=== PATIENT | female | born 1970 | race Caucasian/White ===

== ENCOUNTER → 2017-10-20 10:50 | Outpatient (CLI) | payer OTHER, SELFPAY ==
[2017-10-20 12:12] LABS: T4 Free Direct 1.35 ng/dL (0.76-1.46); Thyroid Stim Hormone (TSH) 0.16 uIU/mL (0.358-3.74)
[2017-10-22 10:03] LABS: Anti-Thyroglobulin AB < 1.0 IU/mL (0.0-0.9); Thyroglobulin, Serum Qt. 0.1 ng/mL (1.5-38.5)
== END ==
PROVIDERS: Family Provider Family Medicine; PCP Family Medicine; Visit Provider Internal Medicine
DX: C73 Malignant neoplasm of thyroid gland (principal)
CPT/HCPCS: 36415; 84432; 84439; 84443; 86800

== ENCOUNTER → 2018-05-09 11:56 | Outpatient (CLI) | payer OTHER, SELFPAY ==
--- NOTE | 2018-05-09 11:58 | BI_ITS ---
MAMMOGRAPHY - BILATERAL SCREENING 3-D AMADA SYNTHESIS REASON FOR EXAM: Female, 47 years old. Bilateral Screening 3-D tomosynthesis PERTINENT HISTORY: Asymptomatic. Family breast carcinoma, paternal aunt age 45. TECHNIQUE: 2-D mammograms and 3-D Amada synthesis of the breast (s) were performed. CAD was performed. COMPARISON: 04/02/2017, 03/30/2016. FINDINGS: The breast composition is heterogeneously dense that can obscure small breast masses. Scattered benign appearing calcifications are again seen. No dense spiculated dominant masses or suspicious microcalcification cluster are identified. No architectural distortion, asymmetric density, adenopathy, skin thickening or nipple retraction identified. There has been no significant change since the most recent prior study. BI/SCREENING MAMM (CAD), BILAT IMPRESSION: No mammographic sign of malignancy. Routine yearly mammograms recommended. ASSESSMENT CATEGORY: BIRADS Category 2: Benign. A letter regarding these results will be sent to the patient by the facility within 30 days. FOLLOW UP RECOMMENDATION: Yearly follow up mammogram recommended. (A) Negative mammographic results should not deter biopsy as a palpable lesion if present should be followed on clinical grounds and biopsy performed if clinically persistent for 3 months or increasing size. Approximately 10% of breast cancers are not detected by mammography. A normal mammogram should not delay biopsy of a clinically suspicious abnormality. Dense breast tissue mainstream neoplasm. Electronically Signed: Silas Correa, at 14:55 EDT Tel , Service support ,
== END ==
PROVIDERS: Family Provider Family Medicine; PCP Family Medicine; Visit Provider Nurse Practitioner Women's Health
DX: Z12.31 Encounter for screening mammogram for malignant neoplasm of breast (principal)
CPT/HCPCS: 77063; 77067

== ENCOUNTER → 2018-11-18 07:48 | Outpatient (CLI) | payer OTHER, SELFPAY ==
[2018-10-24 06:27] VITALS: BMI 33.9
[2018-11-18 08:50] LABS: T4 Free Direct 1.26 ng/dL (0.76-1.46); Thyroid Stim Hormone (TSH) 1.69 uIU/mL (0.358-3.74)
[2018-11-22 17:59] LABS: Thyroglobulin Antibody < 1.0 IU/mL (0.0-0.9)
== END ==
PROVIDERS: Family Provider Family Medicine; PCP Family Medicine; Referring Provider Internal Medicine; Visit Provider Internal Medicine
DX: C73 Malignant neoplasm of thyroid gland (principal); E03.9 Hypothyroidism, unspecified
CPT/HCPCS: 36415; 84439; 84443; 86800

== ENCOUNTER → 2019-05-10 08:18 | Outpatient (CLI) | payer OTHER, SELFPAY ==
[2019-02-20 10:52] VITALS: BMI 34.0
--- NOTE | 2019-05-10 08:21 | BI_ITS ---
BILATERAL DIGITAL MAMMOGRAM WITH TOMOSYNTHESIS: Mediolateraloblique and craniocaudal views demonstrate no evidence of dominant parenchymal masses. No cluster of microcalcifications or architectural distortion is seen. No evidence of skin thickening is identified There has been no significant change since 05/09/2018. Breast Density: The breast tissue is heterogeneously dense, which may obscure small masses. CAD was used to assist in final assessment. IMPRESSION: NORMAL MAMMOGRAM BILATERALLY. ASSESSMENT CATEGORY: BIRADS Category 1: Negative. A letter regarding these results will be sent to the patient by the facility within 30 days. FOLLOW UP RECOMMENDATION: Yearly follow up mammogram recommended. (A) Approximately 10% of breast cancers are not detected by mammography. A normal mammogram should not delay biopsy of a clinically suspicious abnormality. Electronically Signed: Andrea Ramirez, at 17:40 EDT Tel , Service support , BI/SCREEN MAMM (CAD) W/AMADA THAPA
== END ==
PROVIDERS: Family Provider Family Medicine; PCP Family Medicine; Referring Provider Obstetrics & Gynecology; Visit Provider Obstetrics & Gynecology
DX: Z12.31 Encounter for screening mammogram for malignant neoplasm of breast (principal)
CPT/HCPCS: 77063; 77067

== ENCOUNTER → 2019-06-26 10:34 | Outpatient (CLI) | payer OTHER, SELFPAY ==
[2019-06-26 10:25] VITALS: BMI 34.0
--- NOTE | 2019-06-26 10:37 | RAD_ITS ---
STUDY: X-RAY CHEST REASON FOR EXAM: Female, 48 years old. TECHNIQUE: 2 views COMPARISON: None. FINDINGS: The lungs are clear and expanded. There is no demonstrated pleural abnormality. Normal size heart. Normal mediastinum and lizbet. Normal visualized pulmonary arteries. Normal visualized aortic arch and descending thoracic aorta. Normal visualized thoracic spine. Normal visualized ribs, clavicles, and shoulders. There is no demonstrated abnormality of the visualized soft tissue structures of the upper abdomen. RAD/Chest PA and Lateral IMPRESSION: Normal x-ray examination of the chest. Electronically Signed: Kaylie Travis, at 10:58 EST Tel , Service support ,
== END ==
PROVIDERS: Family Provider Family Medicine; PCP Family Medicine; Referring Provider Physician Assistant; Visit Provider Physician Assistant
DX: R05 Cough (principal)
CPT/HCPCS: 71046

== ENCOUNTER → 2019-07-24 17:16 | Outpatient (CLI) | payer OTHER, SELFPAY ==
[2019-07-24 11:19] VITALS: BMI 34.0
[2019-07-31 12:53] LABS: HPV APTIMA, High Risk Negative (Negative)
== END ==
PROVIDERS: Family Provider Family Medicine; PCP Family Medicine; Referring Provider Obstetrics & Gynecology; Visit Provider Obstetrics & Gynecology
DX: Z12.4 Encounter for screening for malignant neoplasm of cervix (principal)
CPT/HCPCS: 87624; 88175; G0145

== ENCOUNTER → 2020-01-08 07:38 | Outpatient (CLI) | payer OTHER, SELFPAY ==
[2019-07-24 11:19] VITALS: BMI 34.0
[2020-01-08 08:57] LABS: T4 Free Direct 1.55 ng/dL (0.76-1.46); Thyroid Stim Hormone (TSH) < 0.01 uIU/mL (0.358-3.74)
[2020-01-10 05:33] LABS: Thyroglobulin Antibody < 1.0 IU/mL (0.0-0.9)
== END ==
PROVIDERS: PCP Family Medicine; Referring Provider Internal Medicine; Visit Provider Internal Medicine
DX: C73 Malignant neoplasm of thyroid gland (principal); E03.9 Hypothyroidism, unspecified
CPT/HCPCS: 36415; 84439; 84443; 86800

== ENCOUNTER → 2020-05-18 07:53 | Outpatient (CLI) | payer OTHER, SELFPAY ==
[2019-07-24 11:19] VITALS: BMI 34.0
--- NOTE | 2020-05-18 07:54 | BI_ITS ---
MAMMOGRAPHY - BILATERAL SCREENING REASON FOR EXAM: Female, 49 years old. Routine annual screening examination. PERTINENT HISTORY: Aunt with breast cancer. TECHNIQUE: Digital bilateral breast amada (3D mammographic acquisition) in the CC and MLO projections. 2-D mediolateral oblique (MLO) and craniocaudad (CC) views of both breasts were obtained. CAD: Full Field Digital Mammography with Computer Added Detection was performed. COMPARISON: Comparison is made with prior study dated 05/10/2019 05/09/2018. FINDINGS: Breast Composition: The breasts are heterogeneously dense, which may obscure small masses. There are no dominant masses or suspicious calcifications. Stable benign-appearing bilateral axillary lymph nodes. No other significant abnormalities are identified. There has been no significant change since the prior study. BI/SCREEN MAMM (CAD) W/AMADA BILAT IMPRESSION: Stable bilateral screening mammogram. Yearly follow-up mammogram recommended. (A) ASSESSMENT CATEGORY: BIRADS Category 2: Benign. A letter regarding these results will be sent to the patient by the facility within 30 days. Approximately 10% of breast cancers are not detected by mammography. A normal mammogram should not delay biopsy of a clinically suspicious abnormality. [id number] Electronically Signed: Patricio Shepherd, at 8:49 EDT , Service support ,
== END ==
LOC: OPBI 11-20 00:27
PROVIDERS: Family Provider Family Medicine; PCP Family Medicine; Referring Provider Obstetrics & Gynecology; Visit Provider Obstetrics & Gynecology
DX: Z12.31 Encounter for screening mammogram for malignant neoplasm of breast (principal); Z80.3 Family history of malignant neoplasm of breast
CPT/HCPCS: 77063; 77067

== ENCOUNTER → 2021-03-04 13:51 | Outpatient (CLI) | payer OTHER, SELFPAY ==
[2021-03-04 13:21] VITALS: BMI 32.3
[2021-03-04 15:05] LABS: Absolute Lymphocyte Count 2.23 X10^3/uL (0.83-4.51); Absolute Neutrophil Count 3.6 X10^3/uL (2.0-7.7); Basophil# 0.08 X10^3/uL; Basophil% 1.2 % (0-1); Eosinophil# 0.11 X10^3/uL; Eosinophils% 1.7 % (0-5); Hematocrit 41.5 % (37-47); Hemoglobin 13.9 g/dL (12.0-15.0); Lymphocyte # 2.23 X10^3/ul (0.83-4.51); Mean Corp Hgb Conc 33.5 g/dL (32-36); Mean Corpuscular Hgb 29.3 pg (27.0-32.0); Mean Corpuscular Volume 87.6 fL (81-99); Mean Platelet Vol. 8.7 fl (6.2-12.0); Monocyte# 0.57 X10^3/uL; Monocyte% 8.7 % (0-10); NRBC Flagged by Analyzer 0 % (0-5); Neutrophil # 3.56 X10^3/uL (2.7-7.7); Neutrophil % 54.2 % (47-70); Platelet Count 387 K/mm3 (150-450); RBC Distribution Width CV 11.9 % (11.6-14.6); RBC Distribution Width SD 38.5 fl (35.1-43.9); Red Blood Count 4.74 M/mm3 (4.2-5.4); White Blood Count 6.6 K/mm3 (4.4-11.0)
[2021-03-04 15:16] LABS: ALB/GLOB Ratio 1.2 RATIO (0.9-2.4); AST(SGOT) 19 U/L (15-37); Alanine Aminotransfer ALT/SGPT 30 U/L (13-56); Albumin, Serum 4.4 g/dL (3.2-5.0); Alkaline Phosphatase 92 U/L (45-117); Anion Gap 4 (5-15); BUN 19 mg/dL (7-18); BUN/Creat Ratio 22.9 RATIO (10-20); Calcium,Total 8.9 mg/dL (8.5-10.1); Chloride 104 mmol/L (98-107); Cholesterol 243 mg/dL (200); Creatinine, Serum 0.83 mg/dL (0.55-1.02); EST Glomerular Filtration Rate 77 mL/min (>60); Est Glom Filt Rate - Afr Amer 94 mL/min (>60); Globulin 3.6 g/dL (2.2-4.2); Glucose 78 mg/dL (74-106); High Density Lipoprotein 70 mg/dL; Potassium 3.7 mmol/L (3.5-5.1); Sodium Level 137 mmol/L (136-145); Triglycerides 67 mg/dL; Very Low Density Lipoprotein 13 mg/dL (5-40)
== END ==
PROVIDERS: PCP Internal Medicine; Referring Provider Internal Medicine; Visit Provider Internal Medicine
DX: Z00.00 Encounter for general adult medical examination without abnormal findings (principal)
CPT/HCPCS: 36415; 80053; 80061; 85025

== ENCOUNTER 2021-09-08 08:18 | Outpatient (CLI) | payer OTHER, SELFPAY ==
--- NOTE | 2021-09-08 08:19 | BI_ITS ---
MAMMOGRAPHY - BILATERAL SCREENING REASON FOR EXAM: Female, 50 years old. Routine annual screening examination. PERTINENT HISTORY: Aunt with breast cancer. TECHNIQUE: Digital bilateral breast amada (3D mammographic acquisition) in the CC and MLO projections. 2-D mediolateral oblique (MLO) and craniocaudad (CC) views of both breasts were obtained. CAD: Full Field Digital Mammography with Computer Added Detection was performed. COMPARISON: Comparison is made with prior study dated 05/18/2020 and 05/10/2019. FINDINGS: Breast Composition: The breasts are heterogeneously dense, which may obscure small masses. There are no dominant masses or suspicious calcifications. Stable small benign-appearing bilateral axillary lymph nodes. No other significant abnormalities are identified. There has been no significant change since the prior study. BI/SCRN MAMM (CAD)W/AMADA BILAT IMPRESSION: Stable bilateral screening mammogram. Yearly follow-up mammogram recommended. (A) ASSESSMENT CATEGORY: BIRADS Category 2: Benign. A letter regarding these results will be sent to the patient by the facility within 30 days. Approximately 10% of breast cancers are not detected by mammography. A normal mammogram should not delay biopsy of a clinically suspicious abnormality. [id number] Electronically Signed: Patricio Shepherd MD at 12:10 EST ,
== END 2021-09-08 23:59 | disposition home or self-care (01) ==
LOC: OPBI 08:18
PROVIDERS: PCP Internal Medicine; Referring Provider Obstetrics & Gynecology; Visit Provider Obstetrics & Gynecology
DX: Z12.31 Encounter for screening mammogram for malignant neoplasm of breast (principal)
CPT/HCPCS: 77063; 77067

== ENCOUNTER 2021-09-29 07:35 | Outpatient (CLI) | payer OTHER, SELFPAY ==
[2021-09-29 10:21] LABS: T4 Free Direct 1.03 ng/dL (0.76-1.46); Thyroid Stim Hormone (TSH) 0.54 uIU/mL (0.358-3.74)
[2021-10-01 13:51] LABS: Anti-Thyroglobulin AB < 1.0 IU/mL (0.0-0.9); Thyroglobulin, Serum Qt. 0.1 ng/mL (1.5-38.5)
== END 2021-09-29 23:59 | disposition home or self-care (01) ==
LOC: MTLAB 07:36
PROVIDERS: PCP Internal Medicine; Referring Provider Internal Medicine; Visit Provider Internal Medicine
DX: C73 Malignant neoplasm of thyroid gland (principal); E03.9 Hypothyroidism, unspecified
CPT/HCPCS: 36415; 84432; 84439; 84443; 86800

== ENCOUNTER 2021-10-27 08:11 | Day surgery (SDC) | payer OTHER, SELFPAY ==
[2021-10-27 08:32] VITALS: BP 118/71; PULSE 68; RESP 16; TEMP 36.9; O2SAT 100; BMI 34.5
[2021-10-27] MEDS: Lactated Ringers 1,000 ML 15 ML IV (08:36)
--- NOTE | 2021-10-27 09:00 | HP.PCM_ITS ---
History and Physical Date of Admission: 10/27/21 CALEB MORALES, is a 50 F who presents to have a screening colonoscopy. She has never had a colonoscopy. And she is not have any abdominal pain or constipation. She does have a personal history of thyroid cancer. She has no complications from her previous diagnosis and treatment. She does not have any family history colon cancer. She is not having abdominal pain, nausea, vomiting or diarrhea at this time. She denies any chest pain or shortness of breath. Overall she is in very good health. Past medical history: Acute bronchitis, thyroid cancer, lichen sclerosis Past surgical history: Thyroidectomy, orthopedic surgery of the back No known drug allergies Social history negative alcohol and drugs ROS Const Constitutional: No body ache, excessive sweating, fatigue, fever(s) or headache(s) Eyes Eyes: No change in vision, dry eyes, eye pain or Light sensitivity ENT ENT: No abnormal hearing, tinnitus, dizziness/vertigo, headache(s), dry mouth, lip swelling, neck pain or sore throat Resp Respiratory: No cough, excessive phlegm production, shortness of breath or pain with cough Cardio Cardiology: No chest pain at rest, leg pain with exertion, excessive sweating, generalized swelling or irregular heart rhythm Gastro GI: No abdominal pain, change in bowel habits, constipation, cramping or diarrhea Musc Musculoskeletal: No back pain, deformity, loss of height, muscle cramps, neck pain or leg pain with exertion Skin Skin: No itchy eyes Breast Breast: No change in breast shape, breast lump, breast pain or breast skin changes Neuro Neurology: No abnormal hearing, confusion, unsteady gait/balance, headache(s) or loss of vision Psych Psychiatric: No confusion Endo Endocrine: No cold intolerance, excessive sweating, fatigue, increased thirst/drinking or increased hunger Aller/Imm Allergy/Immunologic: No food intolerance, itchy eyes, lip swelling, seasonal allergy symptoms or hives Dwight/Lymp Hematologic/Lymphatic: No easy bleeding, easy bruising or enlarged lymph nodes Exam Const General: cooperative, comfortable and no acute distress Orientation: alert, awake and oriented x3 HENMT Head: normal to inspection, normocephalic and atraumatic Ears: hearing grossly normal bilaterally Neck Neck: normal visual inspection, full ROM, no lymphadenopathy and supple Neck mass: No Thyroid: thyroid normal Resp Effort & Inspection: normal respiratory effort and able to speak in complete sentences Auscultation: Bilateral: Clear to Auscultation Cardio Rate: regular rate Rhythm: regular rhythm Heart Sounds: S1 normal and S2 normal GI Palpation: soft (Nontender, no palpable organomegaly) Neuro General: patient alert, patient awake, patient oriented x3, moves all extr emities and CN's II-XI intact bilaterally Extrem General: no clubbing, cyanosis or edema Psych Appearance: grossly normal Mental Status: mental status grossly normal Mood: congruent mood Affect: normal affect Assessment and Plan Colon cancer screening: She will undergo screening colonoscopy. She was explained alternatives, risk, benefits including not withstanding bleeding, infection, sepsis, perforation, need for emergent surgery . She will have an ASA of 1.
[2021-10-27 10:59] VITALS: BP 113/68; BP 118/71; PULSE 67; RESP 16; TEMP 36.6; O2SAT 96
--- NOTE | 2021-10-27 11:00 | OP.CCLET_ITS ---
04/29/2022 He Webber MD [address] [place] [address] [place] [address] Re : Colonoscopy procedure for Manda Matta Dear Dr. Webber This procedure was performed on Wednesday, October 27, 2021. My impressions and recommendations are as follows: Impressions : - The examination was otherwise normal on direct and retroflexion views. - No specimens collected. Recommendations : - Discharge patient to home. - Resume previous diet. - Continue present medications. - Await pathology results. - Repeat colonoscopy in 10 years for screening purposes. - Return to GI office PRN. My findings are described in the full procedure note, which is enclosed. If I can be of further assistance, please feel free to contact me at . Sincerely, Mario Mcgovern, 10/27/2021 10:59:15 AM This report has been signed electronically.
--- NOTE | 2021-10-27 11:00 | OP.COLON_ITS ---
Patient Name: Manda Matta Procedure Date: 10/27/2021 10:28 AM Date of : 1970 Age: 50 Procedure: Colonoscopy Indications: Screening for colorectal malignant neoplasm Providers: Mario Mcgovern DO Medicines: See the Anesthesia note for documentation of the administered medications Patient Profile: This is a 50 year old female. Refer to note in patient chart for documentation of history and physical. Last Colonoscopy: none. The patient's first colonoscopy is today. Complications: No immediate complications. Procedure: Pre-Anesthesia Assessment: - Prior to the procedure, a History and Physical was performed, and patient medications and allergies were reviewed. The risks and benefits of the procedure and the sedation options and risks were discussed with the patient. All questions were answered and informed consent was obtained. Patient identification and proposed procedure were verified by the physician in the pre-procedure area. Mental Status Examination: alert and oriented. Airway Examination: normal oropharyngeal airway and neck mobility. Respiratory Examination: clear to auscultation. CV Examination: normal. Prophylactic Antibiotics: The patient does not require prophylactic antibiotics. Prior Anticoagulants: The patient has taken no previous anticoagulant or antiplatelet agents. After reviewing the risks and benefits, the patient was deemed in satisfactory condition to undergo the procedure. The anesthesia plan was to use moderate sedation / analgesia (conscious sedation). Immediately prior to administration of medications, the patient was re-assessed for adequacy to receive sedatives. The heart rate, respiratory rate, oxygen saturations, blood pressure, adequacy of pulmonary ventilation, and response to care were monitored throughout the procedure. The physical status of the patient was re-assessed after the procedure. After I obtained informed consent, the scope was passed under direct vision. Throughout the procedure, the patient's blood pressure, pulse, and oxygen saturations were monitored continuously. The colonoscope was introduced through the anus and advanced to the cecum, identified by the appendiceal orifice, IC valve and transillumination. The colonoscopy was performed without difficulty. The patient tolerated the procedure well. The quality of the bowel preparation was good. Moderate Sedation: Moderate (conscious) sedation was administered by the endoscopy nurse and supervised by the endoscopist. The following parameters were monitored: oxygen saturation, heart rate, blood pressure, and response to care. Total physician intraservice time was 15 minutes. Scope In: 10:39:33 AM Scope Withdrawal Time 0 hours 11 minutes 4 seconds Scope Out: 10:55:28 AM Total Procedure Duration Time 0 hours 15 minutes 55 seconds Findings: The perianal and digital rectal examinations were normal. The exam was otherwise without abnormality on direct and retroflexion views. Impression: - The examination was otherwise normal on direct and retroflexion views. - No specimens collected. Recommendation: - Discharge patient to home. - Resume previous diet. - Continue present medications. - Await pathology results. - Repeat colonoscopy in 10 years for screening purposes. - Return to GI office PRN. Procedure Code(s): --- Professional --- G0121, Colorectal cancer screening; colonoscopy on individual not meeting criteria for high risk 65817, 59, Moderate sedation services provided by the same physician or other qualified health customer care manager performing the diagnostic or therapeutic service that the sedation supports, requiring the presence of an independent trained observer to assist in the monitoring of the patient's level of consciousness and physiological status; initial 15 minutes of intraservice time, patient age 5 years or older CPT copyright 2017 [employer]. All rights reserved. The codes documented in this report are preliminary and upon certified coder review may be revised to meet current compliance requirements. Mario Mcgovern DO 10/27/2021 10:59:15 AM This report has been signed electronically. Number of Addenda: 1 Note Initiated On: 10/27/2021 10:28 AM Addendum Number: 1 Addendum Date: 04/29/2022 6:18:59 AM MAC was used as sedation for this procedure. Mario Mcgovern DO 04/29/2022 6:19:06 AM This report has been signed electronically.
[2021-10-27 11:05] VITALS: BP 109/48; BP 118/71; PULSE 80; RESP 16; O2SAT 98
[2021-10-27 11:10] VITALS: BP 118/71; BP 118/76; PULSE 63; RESP 16; O2SAT 99
[2021-10-27 11:13] VITALS: BP 109/62; BP 118/71; PULSE 69; RESP 16; TEMP 37.1; O2SAT 99
[2021-10-27 11:39] VITALS: BP 118/71
== END 2021-10-27 23:59 | disposition home or self-care (01) ==
LOC: EN 08:14 → AC 08:14
PROVIDERS: PCP Internal Medicine; Referring Provider Internal Medicine; Visit Provider Internal Medicine Gastroenterology
PROC: 0DJD8ZZ Inspection of Lower Intestinal Tract, Via Natural or Artificial Opening Endoscopic (ICD-10-PCS; CPT 45378; principal; 2021-10-27 09:25)
DX: Z12.11 Encounter for screening for malignant neoplasm of colon (principal); Z85.850 Personal history of malignant neoplasm of thyroid; E89.0 Postprocedural hypothyroidism; L90.0 Lichen sclerosus et atrophicus; Z79.890 Hormone replacement therapy; Z79.899 Other long term (current) drug therapy
CPT/HCPCS: 45378; J7120

== ENCOUNTER → 2022-09-07 | Outpatient (CLI) | payer OTHER, SELFPAY ==
--- NOTE | 2022-09-07 07:02 | EKG12_ITS ---
Test Reason : PRE OP Blood Pressure : / mmHG Vent. Rate : 061 BPM Atrial Rate : 061 BPM P-R Int : 154 ms QRS Dur : 074 ms QT Int : 424 ms P-R-T Axes : 047 019 014 degrees QTc Int : 426 ms Normal sinus rhythm Low voltage QRS Borderline ECG Confirmed by TUNG TEE, MATT ([id number]), newspaper managing editor JAYSON ESPINOZA ([id number]) on 09/07/2022 1:21:37 PM Referred By: OSEAS Confirmed By:MATT RUBY MD
[2022-09-07 07:55] LABS: Hematocrit 40.9 % (37-47); Hemoglobin 13.6 g/dL (12.0-15.0); Mean Corp Hgb Conc 33.3 g/dL (32-36); Mean Corpuscular Hgb 30.4 pg (27.0-32.0); Mean Corpuscular Volume 91.5 fL (81-99); Mean Platelet Vol. 8.6 fl (6.2-12.0); Platelet Count 381 K/mm3 (150-450); RBC Distribution Width CV 12.8 % (11.6-14.6); RBC Distribution Width SD 42.9 fl (35.1-43.9); Red Blood Count 4.47 M/mm3 (4.2-5.4); White Blood Count 7.7 K/mm3 (4.4-11.0)
[2022-09-07 08:10] LABS: Anion Gap 6 (5-15); BUN 22 mg/dL (7-18); BUN/Creat Ratio 25.2 RATIO (10-20); Calcium,Total 8.7 mg/dL (8.5-10.1); Chloride 110 mmol/L (98-107); Creatinine, Serum 0.87 mg/dL (0.55-1.02); EST Glomerular Filtration Rate 73 mL/min (>60); Est Glom Filt Rate - Afr Amer 88 mL/min (>60); Glucose 91 mg/dL (74-106); Sodium Level 143 mmol/L (136-145)
== END | disposition home or self-care (01) ==
PROVIDERS: PCP Internal Medicine; Visit Provider Otolaryngology
DX: Z01.818 Encounter for other preprocedural examination (principal)
CPT/HCPCS: 36415; 80048; 85027; 93005

== ENCOUNTER → 2022-09-21 | Outpatient (CLI) | payer OTHER, SELFPAY ==
--- NOTE | 2022-09-21 10:44 | BI_ITS ---
MAMMOGRAPHY - BILATERAL SCREENING REASON FOR EXAM: Female, 51 years old. Routine annual screening examination. PERTINENT HISTORY: Aunt with breast cancer. TECHNIQUE: Digital bilateral breast amada (3D mammographic acquisition) in the CC and MLO projections. 2-D mediolateral oblique (MLO) and craniocaudad (CC) views of both breasts were obtained. CAD: Full Field Digital Mammography with Computer Added Detection was performed. COMPARISON: Comparison is made with prior study dated 09/08/2021 and 05/18/2020. FINDINGS: Breast Composition: The breasts are heterogeneously dense, which may obscure small masses. There are no dominant masses or suspicious calcifications. Stable small benign-appearing bilateral axillary lymph nodes. No other significant abnormalities are identified. There has been no significant change since the prior study. BI/SCRN MAMM (CAD)W/AMADA BILAT IMPRESSION: Stable bilateral screening mammogram. Yearly follow-up mammogram recommended. (A) ASSESSMENT CATEGORY: BIRADS Category 2: Benign. A letter regarding these results will be sent to the patient by the facility within 30 days. Approximately 10% of breast cancers are not detected by mammography. A normal mammogram should not delay biopsy of a clinically suspicious abnormality. [id number] Electronically Signed: Patricio Shepherd MD at 14:16 EST ,
== END | disposition home or self-care (01) ==
LOC: OPBI 10:43
PROVIDERS: PCP Internal Medicine; Referring Provider Obstetrics & Gynecology; Visit Provider Obstetrics & Gynecology
DX: Z12.31 Encounter for screening mammogram for malignant neoplasm of breast (principal)
CPT/HCPCS: 77063; 77067

== ENCOUNTER → 2022-10-03 | Outpatient (CLI) | payer OTHER, SELFPAY ==
[2022-10-03 12:30] LABS: T4 Free Direct 1.42 ng/dL (0.76-1.46); Thyroid Stim Hormone (TSH) 0.62 uIU/mL (0.358-3.74)
[2022-10-06 15:21] LABS: Thyroglobulin Antibody < 1.0 IU/mL (0.0-0.9)
== END | disposition home or self-care (01) ==
LOC: LAB 11:09
PROVIDERS: PCP Internal Medicine; Visit Provider Internal Medicine
DX: E03.9 Hypothyroidism, unspecified (principal)
CPT/HCPCS: 36415; 84439; 84443; 86800

== ENCOUNTER → 2023-02-23 | Outpatient (CLI) | payer OTHER, SELFPAY ==
--- NOTE | 2023-02-23 14:28 | RAD_ITS ---
STUDY: X-RAY - RIGHT WRIST REASON FOR EXAM: Female, 52 years old. Wrist pain following a fall. TECHNIQUE: 3 view(s) of the wrist were obtained. COMPARISON: None. FINDINGS: Normal visualized distal radius and ulna. Normal radiocarpal articulation. Normal distal radioulnar articulation. Normal carpal bones. Normal carpal articulations. Normal carpometacarpal articulation of the thumb. Normal second through fifth carpometacarpal articulations. Normal visualized metacarpal bones. The soft tissue structures are unremarkable. RAD/Wrist min 3 Views IMPRESSION: Normal x-ray examination of the wrist. Electronically Signed: Patricio Shepherd MD at 14:41 EDT ,
--- NOTE | 2023-02-23 14:28 | RAD_ITS ---
STUDY: X-RAY - RIGHT HAND REASON FOR EXAM: Female, 52 years old. Pain following a fall. TECHNIQUE: 3 view(s) of the hand. COMPARISON: None. FINDINGS: Normal radiocarpal articulation. Normal distal radioulnar joint. Normal visualized carpal bones. Normal carpal articulations Normal carpometacarpal articulation of the thumb. Normal second through fifth carpometacarpal joints. Normal metacarpi. Normal metacarpophalangeal joint of the thumb. Normal interphalangeal joint of the thumb. Normal proximal and distal phalanges of the thumb. Normal metacarpophalangeal joints of the second through fifth fingers. Normal proximal and distal interphalangeal joints of the second through fifth fingers. Normal phalanges of the second through fifth fingers. The soft tissue structures are unremarkable. RAD/Hand Min 3 Views IMPRESSION: Normal x-ray examination of the hand. Electronically Signed: Patricio Shepherd MD at 14:41 EDT ,
== END | disposition home or self-care (01) ==
PROVIDERS: PCP Internal Medicine; Referring Provider Physician Assistant; Visit Provider Physician Assistant
DX: S63.501A Unspecified sprain of right wrist, initial encounter (principal); S60.221A Contusion of right hand, initial encounter; W19.XXXA Unspecified fall, initial encounter
CPT/HCPCS: 73110; 73130

== ENCOUNTER → 2023-05-17 | Outpatient (CLI) | payer OTHER, SELFPAY | END | disposition home or self-care (01) | LOC: LABSPEC 10:21 | PROVIDERS: PCP Internal Medicine; Referring Provider Otolaryngology; Visit Provider Otolaryngology | DX: J32.8 Other chronic sinusitis (principal) | CPT/HCPCS: 87070; 87077; 87186; 87205 ==

== ENCOUNTER → 2023-10-07 | Outpatient (CLI) | payer OTHER, SELFPAY ==
--- NOTE | 2023-10-07 07:55 | BI_ITS ---
MAMMOGRAPHY - BILATERAL SCREENING 3-D TOMOSYNTHESIS REASON FOR EXAM: Female, 52 years old. screening PERTINENT HISTORY: No significant family history. TECHNIQUE: 2-D mammograms and 3-D Tomosynthesis of the breast (s) were performed. CAD was performed. COMPARISON: 09/21/2022 FINDINGS: The breast composition is composed of scattered fibroglandular density. Scattered benign calcifications are seen. No dense spiculated masses or suspicious microcalcifications are identified. No architectural distortion is identified. There is no skin thickening or retraction. There has been no significant change since the prior study. BI/SCRN MAMM (CAD)W/AMADA BILAT IMPRESSION: No mammographic signs of malignancy. Routine yearly mammograms recommended. ASSESSMENT CATEGORY: BIRADS Category 1: Negative. A letter regarding these results will be sent to the patient by the facility within 30 days. FOLLOW UP RECOMMENDATION: Yearly follow up mammogram recommended. (A) Approximately 10% of breast cancers are not detected by mammography. A normal mammogram should not delay biopsy of a clinically suspicious abnormality. Electronically Signed: Jae Jett MD at 14:06 EST ,
--- OUTSIDE RECORDS SUMMARY | 2023-10-07 08:11 | XMS RPT_ITS | CCD ---
Author Name Unknown Address [facility] [id number] [place] [address] Organization [facility] Care Team Providers Care Machine Room Engineer Name Role Phone Marleen TEE, Vannessa Rose Unavailable [phone] Medications Completed/Discontinued Medications Medication Drug Class(es) Dates Sig (Normalized) Sig (Original) Drug Treatment Unknown - unknown (1 source) No information available. Results Test Name Value Interpretation Reference Range Facil ity Procedures Date Procedure Procedure Detail Performing Clinician Start: 03-03-2017 Screening mammography Screenin g mammogram for breast cancer Vannessa Hawley MD Plan of Treatment Date Care Activity Detail Author Start: 03-03-2017 End: 03-03-2017 Mammogram, screening Mammogram, Screening, both breasts [facility] Clinical Note 06-03-2021 Note Date & Type Note Facility 06-03-2021 Note Patient Outreach (HARVEY TNAV) MANDA MATTA ([id number]) 1970 F Date Time Provider Department 06/03/21 TANYA JERNIGAN During your visit today, we recorded the following information about you: Tanya Jernigan Population Health Navigator 06/03/2021 9:47 AM Signed POPULATION HEALTH NAVIGATION OUTREACH Action/FYI I left a voice message and a my chart message re: pcp No care everywhere Contact made with patient or family member? NO Pt identified by name and : NO Outreach Outcome/Action Unable to reach patient: Left message NeoStem[employer] message sent Reason for Outreach Attribution: Provider Off-boarding Payer: Payor: MMO / Plan: MMO SU[employer] PLUS / Product Type: PPO / Care Gap Reviewed:: Reminder: Reminder note to check Health Maintenance for items below Health Maintenance items due: HEPATITIS C SCREENING Never done HIV SCREENING Never done COLORECTAL CANCER SCREENING Never done DEPRESSION SCREENING due on 01/13/2020 SHINGRIX VACCINE(1 of 2) Never done COVID-19 VACCINE(2 - Moderna 2-dose series) due on 12/17/2020 INFLUENZA(1) due on 04/02/2021 MAMMOGRAM due on 05/18/2021 Advanced Directives Completed: Have you ever planned for future healthcare decisions with a power of prison teacher, living will, or advance directives? No. Please bring a copy to your next appointment or email to [email or web address] Referrals: N/A Message Sent to Practice: NO Navigation Signature: Tanya Mckinney Health Navigator June 03, 2021 9:46 AM Allergies As of Date: 06/03/2021 Noted Allergy Reaction AMOXICILLIN 10/10/2012 14 - Other: See Comments Comments: abdominal bloating Date Reviewed: 02/27/2021 Reviewed by: Ajith Almanza MD - Fully Assessed Reason for Visit: Population Health Navigation Outreach [3910] Cmt: Offboarding Prescriptions as of 06/03/2021 - meloxicam (MOBIC) 15 mg tablet Take 1 tablet by mouth once daily. - levothyroxine sodium(SYNTHROID 200 MCG TAB) Take one(1) tablet daily on an empty stomach. - Multivitamin (DAILY MULTIVITAMIN) ORAL Tab Take one(1) tablet daily. Problem List As Of Date 06/03/2021 Noted Resolved Thyroid Cancer [C73] 01/24/2010 Encounter Status:Closed by [facility] TANYA LADD on 06/03/21 [facility] Progress note 06-03-2021 Note Date & Type Note Facility 06-03-2021 Note HNO ID: [id number] Author: Tanya Mckinney Health Navigmarzena Service: ? Author Type: ? Type: Progress Notes Filed: 06/03/2021 9:47 AM Note Text: POPULATION HEALTH NAVIGATION OUTREACH Action/FYI I left a voice message and a my chart message re: pcp No care everywhere Contact made with patient or family member? NO Pt identified by name and : NO Outreach Outcome/Action Unable to reach patient: Left message [employer] message sent Reason for Outreach Attribution: Provider Off-boarding Payer: Payor: MMO / Plan: MMO SU[employer] PLUS / Product Type: PPO / Care Gap Reviewed:: Reminder: Reminder note to check Health Maintenance for items below Health Maintenance items due: HEPATITIS C SCREENING Never done HIV SCREENING Never done COLORECTAL CANCER SCREENING Never done DEPRESSION SCREENING due on 01/13/2020 SHINGRIX VACCINE(1 of 2) Never done COVID-19 VACCINE(2 - Moderna 2-dose series) due on 12/17/2020 INFLUENZA(1) due on 04/02/2021 MAMMOGRAM due on 05/18/2021 Advanced Directives Completed: Have you ever planned for future healthcare decisions with a power of prison teacher, living will, or advance directives? No. Please bring a copy to your next appointment or email to [email or web address] Referrals: N/A Message Sent to Practice: NO Navigation Signature: Tanya Jernigan Population Health Navigator June 03, 2021 9:46 AM [facility] Progress note 01-30-2021 Note Date & Type Note Facility 01-30-2021 Note HNO ID: [id number] Author: Ajith Almanza MD Service: ? Author Type: Physician Type: Progress Notes Filed: 02/27/2021 12:32 PM Note Text: Ajith Almanza MD Department of Orthopaedics Orthopaedics [address] [facility] [address] Dept: [phone] Dept January 30, 2021 CHIEF COMPLAINT: New and Pain of the Left Shoulder and XRay Report HPI Pt. presents with 2 month hx of left shoulder pain, which is in front of shoulder and mid-upper arm. She denies injury. 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 The ibuprofen helps sometimes. AMB ROOMING INTAKE FLOWSHEET DATA Risk Screening Do you have concerns about personal safety or safety in the home?: No Pain Pain Level: (5-7) Pain Location: Shoulder-Left Description: Aching Duration Amount of Time: 2 Duration Units: Months Frequency: Continuous Intervention: Medication, Cold Comments: ibuprofen 400 mg twice daily and home exercises to strengthen ASSESSMENT: M77.8 Tendinitis of left shoulder (primary encounter diagnosis) M75.42 Impingement syndrome of left shoulder PLAN: She is presenting with symptoms that are pretty consistent with impingement. She would like to try cortisone injection today. We will also try an oral anti-inflammatory from physical therapy. FOLLOW UP INSTRUCTIONS: As needed Ms. Manda Matta was advised as to contrast therapies and/or to take analgesics/anti-inflammatories as needed and all contraindications were reviewed. OBJECTIVE: Ms. Manda Matta is a pleasant 50 year old in no apparent distress. Gen:Ht 5' 7 [stated[ (1.70m) Wt 190 lb (86.2kg) LMP 04/25/2015 BMI 29.75 kg/(m2). nl development, non obese, no deformities ENT: Normocephalic, normal hearing, moist mucosa CV: Pulses:Radial= 2+ and symmetric, capillary refill < 2 secs, no peripheral edema/varicosities Skin: no rash, bruising or lesions. Good turgor. Psych: cooperative and appropriate, alert and oriented x 3, good mood and affect. Musculoskeletal: Supple range of motion of the cervical spine without pain. Spurling signs are negative. No atrophy of the deltoid and shoulder musculature. Left shoulder is nontender to palpation over the SC joint, clavicle and AC joint. No tenderness to palpation over the posterior shoulder, positive tenderness palpation over the anterior lateral corner of the shoulder and greater tuberosity. Nonpainful at the bicipital groove and coracoid. Active range of motion is 170 degrees of forward elevation, 50 degrees external rotation, and internal rotation to the upper lumbar spine. Passive range of motion is limited by pain, and symmetrical, respectively. No laxity with anterior and posterior stress. Positive Neer and Toscano impingement signs. 4+/5 strength with supraspinatus, infraspinatus and 5/5 subscapularis. Sensation is intact in the axillary, radial, median and ulnar nerve distribution Large Joint Arthro/Inj: L subacromial bursa The risks, benefits and alternatives of the procedure were reviewed with the patient/surrogate, who agreed to proceed. Written Consent Obtained: N/A Sign In Communication: Completed Time Out: Time Out completed The Time-Out verifies the correct patient, procedure, side/site, position (if applicable) and completion and review of fire risk assessment/protocols (if appropriate): Affirmation of Time Out: Yes Signout Discussion: Yes 01/30/2021 2:53 PM The procedure site was prepped in the usual sterile fashion. Allergies were reviewed Site: L subacromial bursa Medications: 6 mg betamethasone acetate-betamethasone sodium phosphate 6 mg/mL Anesthetics: 4 mL lidocaine (PF) 10 mg/mL (1 %) Outcome: Tolerated well, no immediate complications Post-injection instructions were reviewed with the patient and the patient voiced understanding of these instructions. IMAGING: IMPRESSION: ?Findings are suggestive of mild degenerative changes of the acromioclavicular joint. Other Spatial Scientist: DELORIS ? Transcribe Date/Time: Jan 12:34P Dictated by : VINCE MARMOLEJO MD This examination was interpreted and the report reviewed and electronically signed by: VINCE MARMOLEJO MD on Jan 12:37PM ?EST Results-Findings * * *Final Report* * * DATE OF EXAM: Jan 12:29PM ? WRX ? 5252 ?- ?XR SHLDR >/=3V AP/MADDIE AP/OTHR LT ?/ PROCEDURE REASON: Left shoulder pain, unspecified chronicity ?? ? * * * * Physician Interpretation * * * * ?EXAM TITLE: ?XR SHLDR >/=3V AP/MADDIE AP/OTHR LT EXAM DATE/TIME: ?01/30/2021 12:29 PM COMPARISON: ?None. CLINICAL INDICATION/HISTORY: ?Left shoulder pain. TECHNIQUE: AP, true AP and Y views of the left shoulder are presented FINDINGS: No acute fractures or subluxations are noted. There is acromioclavicular joint space narrowing, with mild osteophyte formation. Normal appearance of the glenohumeral joint. The acromiohumeral interval is maintained (more content not included)... [facility] Progress note 01-30-2021 Note Date & Type Note Facility 01-30-2021 Note HNO ID: [id number] Author: RT Annalise(R) Service: ? Author Type: Weed Controller Type: Progress Notes Filed: 01/30/2021 12:30 PM Note Text: Radiology Service Progress Note PATIENT NAME: Manda Matta DATE OF SERVICE: January 30, 2021 TIME: 12:21 PM PATIENT IDENTITY VERIFICATION COMPLETED USING TWO (2) IDENTIFIERS: Name and Date of confirmed by patient verbally. FALL SCREENING: Has the patient had 2 falls in the last year or 1 fall with injury or currently using an Ambulatory Assistive Device (Walker, Cane, Wheelchair, Crutches, etc.)? No PATIENT GENDER DATA: Female. status: : No status: NO. PATIENT RELEVANT IMPLANT DATA REVIEWED: Not Applicable RADIOLOGY DEPARTMENT: General X-ray: Exam(s) Completed: Upper Extremity X-Ray(s): Shoulder, AP / TRUE AP / AXILLARY left PERIPHERAL IV DATA: Not applicable SIGNED BY: RT Annalise(R) January 30, 2021 12:21 PM [facility] Summary Purpose Family History No Family History Records Found Advance Directives No Advanced Directives Records Found Additional Source Comments INFORMATION SOURCE (unrecogn ized section and content) FOR RECORDS PERTAINING TO PATIENTS WHO ARE OR HAVE BEEN ENROLLED IN A CHEMICAL DEPENDENCY/SUBSTANCEABUSE PROGRAM, SOME INFORMATION MAY BE OMITTED. This clinical summary was aggregated from multiple sources. Caution should be exercised in using it in the provision of clinical care. This summary normalizes information from multiple sources, and as a consequence, information in this document may materially change the coding, format and clinical context of patient data. In addition, data may be omitted in some cases. CLINICAL DECISIONS SHOULD BE BASED ON THE PRIMARY CLINICAL RECORDS. [facility]. provides no warranty or guarantee of the accuracy or completeness of information in this document.
== END | disposition home or self-care (01) ==
LOC: OPBI 07:55
PROVIDERS: PCP Internal Medicine; Referring Provider Obstetrics & Gynecology; Visit Provider Obstetrics & Gynecology
DX: Z12.31 Encounter for screening mammogram for malignant neoplasm of breast (principal)
CPT/HCPCS: 77063; 77067

== ENCOUNTER → 2023-11-27 | Outpatient (CLI) | payer OTHER, SELFPAY ==
[2023-11-27 09:59] LABS: T4 Free Direct 0.69 ng/dL (0.76-1.46)
[2023-11-30 17:07] LABS: Anti-Thyroglobulin AB < 1.0 IU/mL (0.0-0.9); Thyroglobulin, Serum Qt. 0.2 ng/mL (1.5-38.5)
== END | disposition home or self-care (01) ==
LOC: LAB 08:09
PROVIDERS: PCP Internal Medicine; Referring Provider Internal Medicine; Visit Provider Internal Medicine
DX: E03.9 Hypothyroidism, unspecified (principal)
CPT/HCPCS: 36415; 84432; 84439; 84443; 86800

== ENCOUNTER → 2024-01-14 | Outpatient (CLI) | payer OTHER, SELFPAY ==
[2024-01-20 08:14] LABS: HPV APTIMA, High Risk Negative (Negative)
== END | disposition home or self-care (01) ==
LOC: LABSPEC 17:09
PROVIDERS: PCP Internal Medicine; Referring Provider Obstetrics & Gynecology; Visit Provider Obstetrics & Gynecology
DX: Z12.4 Encounter for screening for malignant neoplasm of cervix (principal)
CPT/HCPCS: 87624; 88175; G0145

== ENCOUNTER → 2024-02-22 | Outpatient (CLI) | payer OTHER, SELFPAY ==
--- NOTE | 2024-02-22 10:21 | EKG12_ITS ---
Test Reason : OBESITY Blood Pressure : / mmHG Vent. Rate : 057 BPM Atrial Rate : 057 BPM P-R Int : 150 ms QRS Dur : 088 ms QT Int : 430 ms P-R-T Axes : 027 -21 -07 degrees QTc Int : 418 ms Sinus bradycardia Otherwise normal ECG Confirmed by TUNG TEE, MATT ([id number]), food expeditor JORY SCOTT ([id number]) on 02/22/2024 1:07:56 PM Referred By: Stephanie Ruffin Confirmed By:MATT RUBY MD
== END | disposition home or self-care (01) ==
LOC: PSN 10:18
PROVIDERS: PCP Internal Medicine; Referring Provider Obstetrics & Gynecology; Visit Provider Obstetrics & Gynecology
DX: E66.9 Obesity, unspecified (principal)
CPT/HCPCS: 93005

== ENCOUNTER → 2024-08-23 | Outpatient (CLI) | payer OTHER, SELFPAY ==
--- NOTE | 2024-08-23 15:41 | CT_ITS ---
HISTORY: Chronic sinusitis x 2 months, tubes in ears. TECHNIQUE: Helically acquired images were obtained of the paranasal sinuses without contrast. A radiation dose optimization technique was used for this scan. 512 images. COMPARISON: None. FINDINGS: FRONTAL SINUSES AND ETHMOID AIR CELLS: Clear. MAXILLARY SINUSES: Very small left maxillary sinus mucous retention cysts. No significant air-fluid levels. OSTIOMEATAL COMPLEXES: Patent bilaterally. SPHENOID SINUSES: Clear. NASAL CAVITY: Clear. No significant nasal septal deviation or obstructing spur. ORBITS: Symmetric contents. MASTOID AIR CELLS: Well aerated bilaterally. CT/Sinus/Facial Bone IMPRESSION: Negative CT of the sinuses. Electronically Signed: Amber Wilburn MD at 15:49 EST ,
== END | disposition home or self-care (01) ==
LOC: CT 15:40
PROVIDERS: PCP Internal Medicine; Referring Provider Otolaryngology; Visit Provider Otolaryngology
DX: J32.9 Chronic sinusitis, unspecified (principal)
CPT/HCPCS: 70486

== ENCOUNTER → 2024-11-02 | Outpatient (CLI) | payer OTHER, SELFPAY ==
--- NOTE | 2024-11-02 07:28 | BI_ITS ---
EXAM: SCRN MAMM (CAD)W/AMADA BILAT DATE: 11/02/2024 CLINICAL HISTORY: F, Age 54 y/o , SCREENING MAMMOGRAM Aunt with breast cancer. BREAST CANCER RISK ASSESSMENT: Not assessed. TECHNIQUE: Bilateral screening digital breast tomosynthesis with 2D and 3D images. Computer aided detection. COMPARISON: Prior exam(s) dated October 07, 2023.. FINDINGS: TISSUE DENSITY: The breast tissue is composed of scattered area of fibroglandular density. Bilateral Breast Mammographic Findings: No significant masses, calcifications or other abnormalities are identified. Stable small benign-appearing bilateral axillary lymph nodes. No suspicious masses, areas of developing architectural distortion, or suspicious calcifications. There has been no significant interval change. BI/SCRN MAMM (CAD)W/AMADA BILAT IMPRESSION: Right Breast: BIRADS 1 NEGATIVE. Left Breast: BIRADS 1 NEGATIVE. OVERALL FINAL ASSESSMENT: BIRADS 2 BENIGN FINDING RECOMMENDATION: Routine annual follow-up in 1 Year A letter with findings and recommendations will be mailed to the patient. Reading Location: [place] [address]
== END | disposition home or self-care (01) ==
LOC: OPBI 07:27
PROVIDERS: PCP Internal Medicine; Referring Provider Obstetrics & Gynecology; Visit Provider Obstetrics & Gynecology
DX: Z12.31 Encounter for screening mammogram for malignant neoplasm of breast (principal)
CPT/HCPCS: 77063; 77067

== ENCOUNTER → 2024-12-05 | Outpatient (CLI) | payer OTHER, SELFPAY ==
[2024-12-06 19:08] LABS: Thyroglobulin Antibody < 1.0 IU/mL (0.0-0.9); Thyroid Peroxidase AB < 9 IU/mL (0-34)
== END | disposition home or self-care (01) ==
LOC: MTLAB 07:24
PROVIDERS: PCP Internal Medicine; Referring Provider Internal Medicine; Visit Provider Internal Medicine
DX: C73 Malignant neoplasm of thyroid gland (principal); E03.9 Hypothyroidism, unspecified
CPT/HCPCS: 36415; 84439; 84443; 86376; 86800

== ENCOUNTER 2024-12-20 16:00 | Outpatient (RCR) | payer OTHER, SELFPAY ==
--- NOTE | 2024-11-20 17:00 | HP.PTEVAL_ITS ---
Patient's Visit Information Visit Information Visit Information: CALEB MORALES is a 54 year old F referred to Physical Therapy by Dr. Qiana Simeon DC with a diagnosis of PAIN IN RIGHT SHOULDER ,PAIN IN LEFT SHOULDER ,CHRONIC PAIN. Date of Evaluation: 11/20/24 Physical Therapist: Robby Young, PT, Cert MDT, OCS Visit Plan Frequency: 2x /Week Duration: 4 Weeks Plan: PT INTERVENTIONS STRENGTHENING RTC/SCAPULAR ,POSTURAL EX'S , FLEXIBILITY AND MODLTIES Subjective Subjective: This 54 y/o female presents to physical therapy with bilateral shou lder pain. Patient left > right shoulder for~ 2 years . Patient has had cortisone injections. No medication. Seen chiropractor recommended. Patient has MRI 1 year ago was negative for RTC at [facility] [address] [facility]. Patient aggravating factors lifting OH heavy ,receaching OH ,reaching behind back. Patient symptoms worse when sleeping on side. Alleviating factors rest. Denies paresthesia/tingling . Tried heat . No trauma or injury .Patient condition affects QOL and function. Patient goals to decrease pain. SOCAIL: VOCATION: Teacher Pain Bilateral Shoulder: Pain Intensity (Out of 10): 7 Pain Intensity Range: 10 Comment: activity Objective Objective: POSTURE: mild forward posture rounded shoulder NEURO: denies paresthesia/tingling ,reflexes PALAPTION: unremarkable AROM: bilateral shoulder flexion 140 degrees ,abduction 150 degrees ,ER 90 ,IR T11 CAPSUSULAR : mild tightness 1:1 : G-H function MMT: ( peak force) infraspinatus 15 .7 right ,left 14.8 ,supraspinatus right 12.8 pain ,left 13.1 pain ,deltoid 7.8 pain right ,left 8.1 Special Tests R Shoulder External Rotation Lag Test - RC Tear: Negative R Shoulder Supine Impingement Test - RC Tear: Negative R Shoulder Drop Sign - IS Test: Negative R Shoulder Empty Can - SS: Positive R Shoulder Belly Press - SupScap: Negative R Shoulder Neer - Impingement: Positive R Shoulder Toscano Emeterio - Impingement: Positive R Shoulder Speeds Test - Labrum/Biceps: Positive R Shoulder O'Briens - SLAP/A-C: Positive L Shoulder Supine Impingement Test - RC Tear: Negative L Shoulder Lift Off Test - Subscapular Tear: Negative L Shoulder Drop Sign - IS Test: Negative L Shoulder Empty Can - SS: Positive L Shoulder Belly Press - SupScap: Negative L Shoulder Neer - Impingement: Positive L Shoulder Tsocano Emeterio - Impingement: Positive L Shoulder O'Briens - SLAP/A-C: Negative L Shoulder Shrug Sign - OA/Adhesive Capsulitis: Negative Balance/Special Test Scores Quick DASH Score: 45.4525 Goals Goal 1:: Patient to be I with HEP for shoulders Goal Time Frame: 4-6 Weeks Goal 2:: Patient to improve AROM 150 degrees w/o pain with OH activities Goal Time Frame: 4-6 Weeks Goal 3:: Patient to improve quick dash by 5 points to improve QOL and function Goal Time Frame: 4-6 Weeks Goal 4:: Patient to improve peak force RTC /deltoid by 5 # to improve function OH Goal Time Frame: 4-6 Weeks Goal 5:: Patient to demonstrate 50% improvement with housework task and job demands Goal Time Frame: 4-6 Weeks Rehabilitation Potential Physical Therapy Diagnosis: Patient has bilateral tendonitis/tendinopathy with+ impingement with pain with ROM ,weakness impairs ADLS and housework task thus benefit from skilled PT Rehabilitation Potential: Fair Anticipated Interventions Patient/Client Instruction: Educate patient on: Condition and Plan of Care For the Purpose of:: To decrease pain, To increase ROM, To improve muscle performance and motor function, To improve ability to perform ADL's, To increase tolerance to activity/condition/position, To improve ability of physical actions for home/community/work/leisure, To improve health of tissue, To decrease soft tissue restriction, To increase flexibility/ROM, To reduce risk of recurrence and To improve tolerance to ADL's Therapeutic Exercise to Include: Strength training, Postural training, Flexibilty training, Dynamic Lumbar Stabilization and Royer Exercises For the Purpose of:: To decrease pain, To increase ROM, To improve muscle performance and motor function, To improve ability to perform ADL's, To improve ability of physical actions for home/community/work/leisure, To improve health of tissue, To decrease soft tissue restriction, To increase flexibility/ROM and To reduce risk of recurrence TENS: Yes IF ES: Yes Cryotherapy (ice pack, ice massage): Yes Thermo therapy (hot pack): Yes Ultrasound (thermal/non thermal): Yes For the Purpose of:: To decrease pain, To increase ROM, To improve nutrient delivery to tissue, To increase oxygenation perfusion, To improve health of tissue and To decrease soft tissue restriction Text: Thank you for the opportunity to evaluate your patient. For Medicare and Medicare HMO plans, please review the plan of care and approve it. It will need to be FAXED BACK to us at [phone] for Medicare purposes. For Medicare only, by signing this I certify the plan of care. Please let me know if there are questions or concerns regarding this plan of care. Physician Signature: Date:
--- NOTE | 2024-12-20 16:56 | HP.PTDCSUM ---
Discharge Summary D/C summary: It has been my pleasure to treat CALEB MORALES referred by Dr. Qiana Simeon DC, with the diagnosis of PAIN IN RIGHT SHOULDER ,PAIN IN LEFT SHOULDER ,CHRONIC PAIN for a total of 8 visit(s). Discharge Date: 12/20/24 Please see the following information for a summary of their discharge status. Subjective Subjective: Doing alot better no pain Can do all ADLS and above activities housework tasks Pain Bilateral Shoulder: Pain Intensity (Out of 10): 0 Overall Improvement % Improvement: 90 Objective Objective/Function: POSTURE: mild forward posture rounded shoulder NEURO: denies paresthesia/tingling ,reflexes PALAPTION: unremarkable AROM: bilateral shoulder flexion 160 degrees ,abduction 160 degrees ,ER 90 ,IR T11 CAPSUSULAR : mild tightness 1:1 : G-H function MMT: ( peak force) infraspinatus 20.9 right ,left 19.7 ,supraspinatus right 23.8 pain ,left 19.1 ,deltoid 21.4 pain right ,left 22.4 Goals Goal 1:: Patient to be I with HEP for shoulders Goal Progress: Goal Met Goal 2:: Patient to improve AROM 150 degrees w/o pain with OH activities Goal Progress: Goal Met Goal 3:: Patient to improve quick dash by 5 points to improve QOL and function Goal Progress: Goal Met Goal 4:: Patient to improve peak force RTC /deltoid by 5 # to improve function OH Goal Progress: Goal Met Goal 5:: Patient to demonstrate 50% improvement with housework task and job demands Goal Progress: Goal Met Plan Plan: D/C D/C Information Discharge Comments: HEP d/c sentence: If there are questions or concerns regarding this patient's physical therapy, please feel free to call me at [phone]. Thank you for the referral of this patient. Sincerely, Robby Young, PT, Cert MDT, OCS Balance/Gait/Functional tests Balance/Special Test Scores Quick DASH Score: 45.4525 Improvement % Improvement: 90
== END 2024-12-20 19:00 | disposition home or self-care (01) ==
LOC: PT 16:00
PROVIDERS: PCP Internal Medicine; Referring Provider Chiropractor; Visit Provider Chiropractor
DX: M25.511 Pain in right shoulder (principal); M25.512 Pain in left shoulder; G89.29 Other chronic pain
CPT/HCPCS: 97110; 97162; 97530

== ENCOUNTER → 2025-06-12 | Outpatient (CLI) | payer OTHER, SELFPAY ==
--- NOTE | 2025-06-12 09:52 | EKG12_ITS ---
Test Reason : PRE OP Blood Pressure : */* mmHG Vent. Rate : 65 BPM Atrial Rate : 65 BPM P-R Int : 146 ms QRS Dur : 72 ms QT Int : 398 ms P-R-T Axes : 53 11 18 degrees QTcB Int : 413 ms Sinus rhythm with occasional Premature ventricular complexes Otherwise normal ECG Confirmed by Kyler Pelaez ([id number]), market editor JAYSON ESPINOZA ([id number]) on 06/13/2025 5:57:28 AM Referred By: Abel Perales Confirmed By: Kyler Pelaez
[2025-06-12 11:01] LABS: Hematocrit 39.3 % (37-47); Hemoglobin 13.2 g/dL (12.0-15.0); Immature Granulocytes Count 0.020 X10^3/uL (0.0-0.0); Mean Corp Hgb Conc 33.6 g/dL (32-36); Mean Corpuscular Volume 85.8 fL (81-99); Mean Platelet Vol. 9.0 fl (6.2-12.0); NRBC Flagged by Analyzer 0 % (0-5); Platelet Count 360 K/mm3 (150-450); RBC Distribution Width CV 12.6 % (11.6-14.6); RBC Distribution Width SD 39.1 fl (35.1-43.9); Red Blood Count 4.58 M/mm3 (4.2-5.4); White Blood Count 6.8 K/mm3 (4.4-11.0)
[2025-06-12 12:02] LABS: AST(SGOT) 16 U/L (<=31); Alanine Aminotransfer ALT/SGPT 11 U/L (<=34); Albumin, Serum 4.5 g/dL (3.5-5.0); Alkaline Phosphatase 97 U/L (35-104); Anion Gap 10 (5-15); BUN 19 mg/dL (4-19); BUN/Creat Ratio 22.1 RATIO (10-20); Calcium,Total 9.4 mg/dL (7.6-11.0); Carbon Dioxide 25.3 mmol/L (21.0-32.0); Chloride 105 mmol/L (98-108); Cholesterol 209 mg/dL (<=200); Globulin 2.7 g/dL (2.2-4.2); Glucose 90 mg/dL (70-99); Low Density Lipoprotein Calc. 133 mg/dL; Potassium 4.4 mmol/L (3.3-5.1); Triglycerides 95 mg/dL; Very Low Density Lipoprotein 19 mg/dL (5-40); cholesterol:hdl ratio screen 3.55
== END | disposition home or self-care (01) ==
PROVIDERS: PCP Internal Medicine; Referring Provider Otolaryngology; Visit Provider Otolaryngology
DX: Z01.810 Encounter for preprocedural cardiovascular examination (principal); E89.0 Postprocedural hypothyroidism; E78.2 Mixed hyperlipidemia; Z85.850 Personal history of malignant neoplasm of thyroid
CPT/HCPCS: 36415; 80053; 80061; 85025; 93005